=== PATIENT | male | born 1960 | race African-American/Black ===

== ENCOUNTER 2017-03-29 06:05 | Emergency (ER) | payer OTHER ==
[~2017-03-29] VITALS: Ht 177.8 cm; Wt 84.0 kg
[2017-03-29] MEDS ORDERED: KETOROLAC TROMETHAMINE 60 MG/2 ML VIAL IM ONE (06:45)
[2017-03-29 08:18] VITALS: BP 127/76
== END 2017-03-29 08:20 | disposition home or self-care (01) ==
LOC: EMS 06:06
DX: R07.89 Other chest pain (principal); R61 Generalized hyperhidrosis
CPT/HCPCS: 36415; 71010; 84484; 93005; 96372; 99285; J1885